=== PATIENT | female | born 1965 | race Caucasian/White ===

== ENCOUNTER 2017-10-29 10:10 | Emergency (ER) | payer MEDICAID ==
[~2017-10-29] VITALS: Ht 165.1 cm; Wt 99.3 kg
[2017-10-29 10:40] VITALS: BP 170/92
--- NOTE | 2017-10-29 10:47 | NUR ---
patient to lobby awaiting room. mother with patient.
--- NOTE | 2017-10-29 12:24 | NUR ---
PT AMBULATES TO BED 11
--- NOTE | 2017-10-29 13:14 | NUR ---
52YO F TO ER WITH C/O HIGH BLOOD PRESSURE X3DAYS. PT STATE R SIDE NECK PAIN RADIATING TO HEAD, HEADACHE, WITH N/V, EPIGASTRIC PAIN WITH REFLUX SENSATION. PT STATES PAIN OF 8/10 IN R NECK. PT AWAKE/ALERT AND ORIENTED TO PERSON PLACE TIME AND EVENT. PERRLA, LS CLEAR THROUGHOUT, BS ACTIVE X4, ABD SOFT ROUND AND TENDER TO PALPATION IN EPIGASTRIC AREA. PT DENIES ANY CP, SOB, FEVER OR COUGH AT THIS TIME. WILL CONTINUE TO MONITOR, ER MD MADE AWARE. PT POSITIONED FOR COMFORT.
--- NOTE | 2017-10-29 13:58 | NUR ---
Patient being evaluated by physician at bedside.
[2017-10-29] MEDS ORDERED: MECLIZINE 25 MG TAB PO ONE (14:00)
--- NOTE | 2017-10-29 14:20 | NUR ---
PT TO CT VIA [facility]. PT IN STABLE CONDITION
--- NOTE | 2017-10-29 14:28 | NUR ---
PT BACK FROM CT. WITH CO OF INCREASED HEADACHE . ER MD MADE AWARE. AWAITING ORDERS
--- NOTE | 2017-10-29 14:30 | NUR ---
LAB AT BED SIDE
[2017-10-29 14:51] LABS: BASOPHILS # (AUTO) 0.1 K/uL (0.00-0.22); BASOPHILS % (AUTO) 0.7 % (0.0-2.0); EOSINOPHILS # (AUTO) 0.1 K/uL (0-0.4); EOSINOPHILS % (AUTO) 0.7 % (0.0-4.0); HEMOGLOBIN 14.4 g/dL (12.0-16.0); LYMPHOCYTES # (AUTO) 1.9 K/uL (2.5-16.5); LYMPHOCYTES % (AUTO) 22.9 % (20.5-51.1); MEAN CORPUSCULAR HEMOGLOBIN 31 pg (27-31); MEAN CORPUSCULAR HGB CONC 34 g/dL (33-37); MONOCYTES # (AUTO) 0.5 K/uL (0.8-1.0); MONOCYTES % (AUTO) 5.7 % (1.7-9.3); NEUTROPHILS # (AUTO) 5.9 K/uL (1.8-7.7); PLATELET COUNT (AUTO) 191 K/uL (140-450); RED BLOOD CELL COUNT(AUTO) 4.72 MIL/uL (4.20-5.40); RED CELL DISTRIBUTION WIDTH 13.4 % (11.6-13.7); WHITE BLOOD COUNT (AUTO) 8.4 K/uL (4.8-10.8)
[2017-10-29] MEDS ORDERED: LORazepam 2 MG/ML VIAL IM ONE (14:55)
[2017-10-29 15:05] LABS: PROTHROMBIN TIME 9.8 secs (10.8-13.4)
[2017-10-29 15:10] LABS: APPEARANCE,URINE CLEAR (CLEAR); BILIRUBIN,URINE 1+ (NEGATIVE); BLOOD, URINE 3+ (NEGATIVE); COLOR,URINE AMBER (YELLOW); NITRITE, URINE NEGATIVE (NEGATIVE); UGLUCOSE NEGATIVE (NEGATIVE)
[2017-10-29 15:11] LABS: LEUKOCYTE ESTERASE ,URINE NEGATIVE (NEGATIVE)
[2017-10-29 15:29] LABS: RBC,URINE 0-5 (RARE) /HPF (0-5); WBC,URINE 0-5 (RARE) /HPF (0-5)
[2017-10-29 15:36] LABS: ANION GAP 10.5 (8-16); CARBON DIOXIDE 29.1 mmol/L (21-32); CREATININE 0.7 mg/dL (0.6-1.3); POTASSIUM 3.6 mmol/L (3.5-5.1); TOTAL BILIRUBIN 2.3 mg/dL (0.0-1.0)
[2017-10-29 15:37] LABS: ALBUMIN 3.7 g/dL (3.4-5.0)
--- NOTE | 2017-10-29 16:03 | NUR ---
PT APPEARS TO BE SLEEPING IN NO APPEARENT DISTRESS. RR EVEN AND UNLABORED
--- NOTE | 2017-10-29 16:09 | NUR ---
[facility] in [facility] - 10/29/17 at 1702 by LORETTAS PT BACK FROM CT
--- NOTE | 2017-10-29 16:30 | NUR ---
PT APPEARS TO BE SLEEPIN IN NO APPEARENT DISTRESS. VSS
[2017-10-29 17:07] VITALS: BP 145/79
--- NOTE | 2017-10-29 17:07 | NUR ---
Patient discharged with v/s stable. Written and verbal after care instructions given and explained. Patient alert, oriented and verbalized understanding of instructions. Ambulatory with steady gait. All questions addressed prior to discharge. ID band removed. Patient advised to follow up with PMD. Rx of LISINOPRIL/HYDROCHLOROTHIAZIDE given. Patient educated on indication of medication including possible reaction and side effects. Opportunity to ask questions provided and answered.
== END 2017-10-29 17:07 | disposition home or self-care (01) ==
LOC: MED 10:10
DX: I10 Essential (primary) hypertension (principal); G44.209 Tension-type headache, unspecified, not intractable; Z76.0 Encounter for issue of repeat prescription
CPT/HCPCS: 36415; 70450; 71045; 80053; 81001; 81025; 82150; 83690; 84484; 85025; 85610; 85730; 93005; 96372; 99285; J2060; J8597; Q0092